=== PATIENT | female | born 1970 | race Caucasian/White ===

== ENCOUNTER 2018-08-05 18:46 | Emergency (ER) | payer SELFPAY ==
[2018-08-05] MEDS: IBUPROFEN 600 MG TAB PO (20:16)
== END 2018-08-05 22:38 | disposition home or self-care (01) ==
LOC: FTE 22:38
DX: M54.5 Low back pain (principal); M25.511 Pain in right shoulder
CPT/HCPCS: 72100; 73030-RT; 73510; 99284-25